=== PATIENT | male | born 2000 | race Caucasian/White ===

== ENCOUNTER 2018-11-26 21:51 | Emergency (ER) | payer BC, OTHER ==
[~2018-11-26] VITALS: Ht 172.7 cm; Wt 75.1 kg
[2018-11-26 21:56] VITALS: BP 134/80
--- NOTE | 2018-11-26 22:35 | NUR ---
PT HAS BEEN EVALUATED BY DR GARCIA
[2018-11-26] MEDS ORDERED: ibuprofen 200mg tablet PO ONE (22:40)
== END 2018-11-26 23:21 | disposition home or self-care (01) ==
LOC: ER 21:52
DX: R07.89 Other chest pain (principal); M79.18 Myalgia, other site; M25.511 Pain in right shoulder; F12.90 Cannabis use, unspecified, uncomplicated; Z88.0 Allergy status to penicillin
CPT/HCPCS: 71046; 73030; 99283